=== PATIENT | male | born 1990 | race Caucasian/White ===

== ENCOUNTER 2021-06-09 16:02 | Outpatient (CLI) | payer OTHER, SELFPAY ==
--- NOTE | ~2021-06-09 | CT_ITS ---
EXAMINATION: CT brain wo con DATE: 06/09/2021 16:18 INDICATION: Seizures. TECHNIQUE: Computed tomography (CT) of the head was performed without intravenous contrast. The mA wa s adjusted according to patient size. Iterative reconstruction technique was employed. The dose-lengt h product was 605.33 mGy-cm. COMPARISON: None FINDINGS: There is chronic encephalomalacia involving right parietal, occipital, and posterior tempor al lobes. There is an extra-axial fluid collection that is isodense to cerebrospinal fluid overlying right frontal, parietal, and occipital lobes with maximum thickness of 2.4 cm. This collection may co mmunicate with the occipital horn of right lateral ventricle. There is a shunt catheter in this fluid collection. There is 4 mm leftward midline shift. Left lateral ventricle is larger than the right. T here is no acute ischemic infarct or intracranial hemorrhage or abnormal mass lesion. The paranasal s inuses are clear. The orbits are normal. The mastoid air cells are normal. IMPRESSION: 1. Chronic encephalomalacia involving right parietal, occipital, and posterior temporal lobes. 2. Extra-axial fluid collection overlying right frontal, parietal, and occipital lobes with shunt cat heter. Asymmetry of the lateral ventricles and 4 mm leftward midline shift. Comparison with outside i maging is recommended to determine if these findings are chronic. Reviewed, dictated and finalized at location B. IMPRESSION: 1. Chronic encephalomalacia involving right parietal, occipital, and posterior temporal lobes. 2. Extra-axial fluid collection overlying right frontal, parietal, and occipita l lobes with shunt catheter. Asymmetry of the lateral ventricles and 4 mm leftw ruthy midline shift. Comparison with outside imaging is recommended to determine if these findings are chronic.
== END 2021-06-09 16:03 | disposition home or self-care (01) ==
LOC: ANHIMG 16:05
PROVIDERS: PCP Family Medicine; Visit Provider Family Medicine
DX: Z86.69 Personal history of other diseases of the nervous system and sense organs (principal); R93.0 Abnormal findings on diagnostic imaging of skull and head, not elsewhere classified
CPT/HCPCS: 70450